=== PATIENT | male | born 2000 | race Caucasian/White ===

== ENCOUNTER 2024-08-21 14:40 | Emergency (ER) | payer OTHER ==
[~2024-08-21] VITALS: Ht 180.3 cm; Wt 75.7 kg
[2024-08-21 14:55] VITALS: RESP 16; TEMP 98.4
[2024-08-21 15:53] VITALS: PULSE 66
[2024-08-21] MEDS ORDERED: AZITHROMYCIN250 MG PO (16:09)
[2024-08-21] MEDS ORDERED: VENTOLIN HFA18 GM INH (16:09)
[2024-08-21] MEDS ORDERED: PREDNISONE20 MG PO (16:09)
[2024-08-21 16:10] VITALS: PULSE 74; RESP 20; O2SAT 98
[2024-08-21] MEDS: ALBUTEROL/IPRATROPIUM 3 ML NEB NEB ONE (16:10)
== END 2024-08-21 16:38 | disposition home or self-care (01) ==
LOC: ER 15:01
DX: R05.9 Cough, unspecified (principal); J40 Bronchitis, not specified as acute or chronic; F41.9 Anxiety disorder, unspecified; F32.A Depression, unspecified; F17.210 Nicotine dependence, cigarettes, uncomplicated
CPT/HCPCS: 71046; 99284